=== PATIENT | male | born 1965 | race Two or more races ===

== ENCOUNTER 2018-09-14 08:53 | Emergency (ER) | payer BC ==
--- NOTE | 2018-09-14 09:09 | EDPHYS ---
Physician Documentation [facility] Name: Bill Catalan Age: 52 yrs Sex: Male : 1965 Arrival Date: 09/14/2018 Time: 08:58 Bed 19 Private MD: Chaz Pugh B ED Physician Navi Adamson HPI: 09/14 09:07 This 52 yrs old Male presents to ER via Unassigned with complaints of Rash. nh 09:07 The patient's rash thought to be caused by Dermatitis. The rash is located on the body nh diffusely. The rash can be described as erythematous, urticarial. Onset: The symptoms/episode began/occurred 2 day(s) ago. Associated signs and symptoms: Pertinent positives: itching. Severity of symptoms: At their worst the symptoms were moderate just prior to arrival, in the emergency department the symptoms are unchanged. The patient has experienced similar episodes in the past, today's symptoms are similar, to when the patient was apparently diagnosed with contact dermatitis. The patient has not recently seen a physician. Historical: - Allergies: 09:09 unknown antibiotic; ss - Home Meds: 09:09 None [Active]; ss - PMHx: 09:09 None; ss - PSHx: 09:09 None; ss - Immunization history:: Adult Immunizations. - Social history:: Smoking status: . - Ebola Screening: : Patient denies travel to an Ebola-affected area in the 21 days before illness onset. ROS: 09:07 Constitutional: Negative for fever, chills, and weight loss, Eyes: Negative for injury, nh pain, redness, and discharge, ENT: Negative for injury, pain, and discharge, Neck: Negative for injury, pain, and swelling, Cardiovascular: Negative for chest pain, palpitations, and edema, Respiratory: Negative for shortness of breath, cough, wheezing, and pleuritic chest pain, Abdomen/GI: Negative for abdominal pain, nausea, vomiting, diarrhea, and constipation, Back: Negative for injury and pain, : Negative for injury, bleeding, discharge, and swelling, MS/Extremity: Negative for injury and deformity, Neuro: Negative for headache, weakness, numbness, tingling, and seizure, Psych: Negative for depression, anxiety, suicide ideation, homicidal ideation, and hallucinations, Allergy/Immunology: Negative for hives, rash, and allergies, Endocrine: Negative for neck swelling, polydipsia, polyuria, polyphagia, and marked weight changes, Hematologic/Lymphatic: Negative for swollen nodes, abnormal bleeding, and unusual bruising. 09:07 Skin: Positive for rash. Exam: 09:07 Constitutional: This is a well developed, well nourished patient who is awake, alert, nh and in no acute distress. Head/Face: Normocephalic, atraumatic. Eyes: Pupils equal round and reactive to light, extra-ocular motions intact. Lids and lashes normal. Conjunctiva and sclera are non-icteric and not injected. Cornea within normal limits. Periorbital areas with no swelling, redness, or edema. ENT: Nares patent. No nasal discharge, no septal abnormalities noted. Tympanic membranes are normal and external auditory canals are clear. Oropharynx with no redness, swelling, or masses, exudates, or evidence of obstruction, uvula midline. Mucous membranes moist. Neck: Trachea midline, no thyromegaly or masses palpated, and no cervical lymphadenopathy. Supple, full range of motion without nuchal rigidity, or vertebral point tenderness. No Meningismus. Chest/axilla: Normal chest wall appearance and motion. Nontender with no deformity. No lesions are appreciated. Cardiovascular: Regular rate and rhythm with a normal S1 and S2. No gallops, murmurs, or rubs. Normal PMI, no JVD. No pulse deficits. Respiratory: Lungs have equal breath sounds bilaterally, clear to auscultation and percussion. No rales, rhonchi or wheezes noted. No increased work of breathing, no retractions or nasal flaring. Abdomen/GI: Soft, non-tender, with normal bowel sounds. No distension or tympany. No guarding or rebound. No evidence of tenderness throughout. Back: No spinal tenderness. No costovertebral tenderness. Full range of motion. MS/ Extremity: Pulses equal, no cyanosis. Neurovascular intact. Full, normal range of motion. Neuro: Awake and alert, GCS 15, oriented to person, place, time, and situation. Cranial nerves II-XII grossly intact. Motor strength 5/5 in all extremities. Sensory grossly intact. Cerebellar exam normal. Normal gait. Psych: Awake, alert, with orientation to person, place and time. Behavior, mood, and affect are within normal limits. 09:07 Skin: contact dermatitis. Vital Signs: 09:09 BP 128 / 73; Pulse 66; Resp 16; Temp 99.0(TE); Pulse Ox 99% on R/A; Weight 86.18 kg; ss Height 5 ft. 11 in. (180.34 cm); Pain 0/10; 09:09 Body Mass Index 26.50 (86.18 kg, 180.34 cm) ss MDM: 09:00 Patient medically screened. ky 09:07 Data reviewed: vital signs, nurses notes, I have discussed the patient's ky presentation/case with the attending Emergency Department Physician; and as a result, I will discharge patient. Counseling: I had a detailed discussion with the patient and/or guardian regarding: the historical points, exam findings, and any diagnostic results supporting the discharge/admit diagnosis, the need for outpatient follow up, to return to the emergency department if symptoms worsen or persist or if there are any questions or concerns that arise at home. Administered Medications: 09:15 Drug: Dexamethasone 10 mg Route: IM; Site: right gluteus; tw2 09:37 Follow up: Response: No adverse reaction tw2 Disposition: 11:45 Co-signature as Attending Physician, Navi Adamson MD. rn Disposition: 09/14/18 09:09 Discharged to Home. Impression: Allergic contact dermatitis. - Condition is Stable. - Discharge Instructions: Contact Dermatitis. - Prescriptions for Medrol (Dae) 4 mg Oral Tablets, Dose Pack - take 1 tablet by ORAL route as directed - follow package instructions; 1 packet. - Medication Reconciliation Form, Thank You Letter, Antibiotic Education, Prescription Opioid Use form. - Follow up: Private Physician; When: 2 - 3 days; Reason: Recheck today's complaints. - Problem is new. - Symptoms are unchanged. Signatures: Mimi Mcfarland, TALENT ANALYST TALENT ANALYST ky Navi Adamson MD MD rn Smirch, Shelby, RN RN ss Wise, Tara, RN RN tw2 Corrections: (The following items were deleted from the chart) 09:37 09:09 09/14/2018 09:09 Discharged to Home. Impression: Allergic contact dermatitis. tw2 Condition is Stable. Forms are Medication Reconciliation Form, Thank You Letter, Antibiotic Education, Prescription Opioid Use. Follow up: Private Physician; When: 2 - 3 days; Reason: Recheck today's complaints. Problem is new. Symptoms are unchanged. nh
--- NOTE | 2018-09-14 09:09 | ER ---
Nurse's Notes [facility] Name: Bill Catalan Age: 52 yrs Sex: Male : 1965 Arrival Date: 09/14/2018 Time: 08:58 Bed 19 Private MD: Chaz Pugh B Diagnosis: Allergic contact dermatitis Presentation: 09/14 09:06 Presenting complaint: Patient states: Red, itchy rash to face and bilateral upper ss extremities x 2 days. Denies difficulty breathing. Pt believes it may be poison Adelina/oak because he was doing yard work 5 days ago. Transition of care: patient was not received from another setting of care. Onset of symptoms was September 12, 2018. Care prior to arrival: None. 09:06 Method Of Arrival: Ambulatory ss 09:06 Acuity: KRISH 5 09:08 Risk Assessment: Do you want to hurt yourself or someone else? Patient reports no tw2 desire to harm self or others. Initial Sepsis Screen: Does the patient meet any 2 criteria? No. Patient's initial sepsis screen is negative. Does the patient have a suspected source of infection? No. Patient's initial sepsis screen is negative. Care prior to arrival: None. Triage Assessment: 09:16 General: Behavior is calm, appropriate for age. tw2 Historical: - Allergies: 09:09 unknown antibiotic; ss - Home Meds: 09:09 None [Active]; ss - PMHx: 09:09 None; ss - PSHx: 09:09 None; ss - Immunization history:: Adult Immunizations. - Social history:: Smoking status: . - Ebola Screening: : Patient denies travel to an Ebola-affected area in the 21 days before illness onset. Screenin:08 Abuse screen: Denies threats or abuse. Nutritional screening: No deficits noted. tw2 Tuberculosis screening: No symptoms or risk factors identified. Fall Risk None identified. Assessment: 09:09 General: Appears in no apparent distress. Pain: Denies pain. Neuro: Level of tw2 Consciousness is awake, alert, obeys commands, Oriented to person, place, time, situation. Cardiovascular: Denies chest pain, shortness of breath, Patient's skin is warm and dry. Respiratory: Airway is patent Respiratory effort is even, unlabored, Respiratory pattern is regular, symmetrical. GI: No signs and/or symptoms were reported involving the gastrointestinal system. : No signs and/or symptoms were reported regarding the genitourinary system. Derm: Reports rash after being outside. Musculoskeletal: Range of motion: intact in all extremities. 09:09 Derm: redness and swelling noted around both eyes, nose and b/l arms. tw2 09:37 Reassessment: Patient appears in no apparent distress at this time. No changes from tw2 previously documented assessment. Patient is alert, oriented x 3, equal unlabored respirations, skin warm/dry/pink. Vital Signs: 09:09 BP 128 / 73; Pulse 66; Resp 16; Temp 99.0(TE); Pulse Ox 99% on R/A; Weight 86.18 kg; ss Height 5 ft. 11 in. (180.34 cm); Pain 0/10; 09:09 Body Mass Index 26.50 (86.18 kg, 180.34 cm) ED Course: 08:58 Patient arrived in ED. sb2 08:58 Chaz Pugh MD is Private Physician. sb2 08:59 Bed in low position. Call light in reach. Pulse ox on. NIBP on. tw2 09:00 Mimi Mcfarland FNP is [facility]. de 09:00 Navi Adamson MD is Attending Physician. de 09:07 Laya Stephens, KAITY is Primary Nurse. tw2 09:08 Arm band placed on. tw2 09:09 Triage completed. 09:16 No provider procedures requiring assistance completed. Patient did not have IV access tw2 during this emergency room visit. Administered Medications: 09:15 Drug: Dexamethasone 10 mg Route: IM; Site: right gluteus; tw2 09:37 Follow up: Response: No adverse reaction tw2 Outcome: 09:09 Discharge ordered by . de 09:37 Discharged to home ambulatory. tw2 09:37 Condition: stable 09:37 Discharge instructions given to patient, Instructed on discharge instructions, follow up and referral plans. medication usage, Demonstrated understanding of instructions, follow-up care, medications, Prescriptions given X 1. 09:37 Patient left the ED. tw2 Signatures: Mimi Mcfarland FNP FNP de Leatha Cabrera RN RN Laya Stephens RN RN tw2 Laura Franco sb2
[2018-09-14] MEDS ORDERED: DEXAMETHASONE 4 MG/ML VIAL ONE (09:21)
== END 2018-09-14 09:37 | disposition home or self-care (01) ==
LOC: ER 08:53
DX: L23.9 Allergic contact dermatitis, unspecified cause (principal); Z88.1 Allergy status to other antibiotic agents
CPT/HCPCS: 96372; 99283